=== PATIENT | female | born 1940 | race American Indian/Alaskan Native ===

== ENCOUNTER 2020-07-27 11:00 | Outpatient (CLI) | payer MEDICARE ==
--- NOTE | 2020-07-27 14:25 | Cat Scan Report ---
CT abdomen pelvis wo con INDICATION: LLQ PAIN. TECHNIQUE: All CT scans at this location are performed using the following dose modulation technique: Automated exposure control. Helical slices were obtained through the abdomen and pelvis. No contrast is adminis tered. COMPARISON: None available. FINDINGS: Abdomen: There is linear atelectasis or scar in the lung bases. Mild atherosclerotic calcifications a re noted in the coronary arteries. No acute abnormality is seen in the liver. There is a 1.6 cm cyst in the left lobe of the liver. The spleen, pancreas, adrenal glands, and kidneys show no acute abnormality. Atherosclerotic calcificatio ns are noted in the aorta and iliac arteries. There is no adenopathy. Pelvis: The appendix is unremarkable. There is no obstruction or inflammation. There are no abnormal fluid collections. There are no renal or ureteral calculi.. Phleboliths are noted. Vascular calcifica tions are noted. On review of bone windows, no acute osseous abnormalities are seen. 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 IMPRESSION: 1. There is no obstruction, inflammation, or free air. There are no abnormal fluid collections. No ac [place] abnormality is seen in the abdomen or pelvis. Signer Name: Yonathan Gutierrez MD Signed: 07/27/2020 2:21 PM Workstation Name: [id number]
== END 2020-07-27 11:01 | disposition home or self-care (01) ==
LOC: CT 11:00
PROVIDERS: ATTEND Family Medicine Adult Medicine
DX: R10.32 Left lower quadrant pain (principal)
CPT/HCPCS: 74176